=== PATIENT | male | born 1995 | race Caucasian/White ===

== ENCOUNTER 2017-10-15 22:46 | Emergency (ER) | payer OTHER ==
[~2017-10-15] VITALS: Ht 162.6 cm; Wt 68.5 kg
[~2017-10-15 22:46] MED LIST: AMOX875T20 PO; CETI5TAB2 PO; LINE150S PO; PERC5TAB12 PO
[2017-10-15 23:27] VITALS: BP 125/59; PULSE 106; RESP 18; TEMP 102.2; O2SAT 98
[2017-10-16 00:07] VITALS: TEMP 103.6
[2017-10-16] MEDS ORDERED: ONDANSETRON HCL 4 MG/2 ML VIAL IV ONE (00:15)
[2017-10-16] MEDS ORDERED: SODIUM CHLOR 0.9% 1000 ML INJ 1,000 ML IV SCH (00:15)
[2017-10-16] MEDS ORDERED: ACETAMINOPHEN 500 MG CPLT PO ONE (00:15)
[2017-10-16 01:14] VITALS: TEMP 103
[2017-10-16] MEDS ORDERED: OSELTAMIVIR PHOSPHATE 75 MG CAP PO ONE (01:15)
[2017-10-16 01:23] VITALS: BP 158/50; PULSE 103; RESP 20; TEMP 103; O2SAT 100
[2017-10-16] MEDS ORDERED: OSEL75 PO (01:30)
[2017-10-16] MEDS ORDERED: ZOFR8TAB PO (01:30)
[2017-10-16] MEDS ORDERED: TRAM50TA PO (01:32)
--- NOTE | 2017-10-16 01:35 | PD ---
HPI Chief Complaint: Cold / Flu Symptoms Time Seen by Provider: 00:10 Travel History International Travel<30 days: No Contact w/Intl Traveler<30days: No Traveled to known affect area: No History of Present Illness HPI The patient is a 22-year-old male that for one day complains of cough, congestion, myalgias and headache. He is allergic to ibuprofen. He has had a fever at home. He does have nausea and vomiting without diarrhea. His headache pain as dull and a 6/10 in intensity. He denies any significant abdominal pain. [facility] Past Medical History Medical History: Denies Significant Hx Diminished Hearing: No Medical other: Yes (HAS HAD MRSA 3 TIMES, LIP, JAW AND RIGHT LEG) Immunizations Current: No Tetanus Vaccination: < 5 Years Influenza Vaccination: Yes ?: Not Past Surgical History Surgical History: No Previous Surgery Social History Alcohol Use: Yes (SOCIALLY) Tobacco Use: No Substance Use: No Allergies-Medications (Allergen,Severity, Reaction): Coded Allergies: ibuprofen (Verified Allergy, Severe, Anaphylaxis, 10/16/17) vancomycin (Verified Allergy, Severe, Rash, 10/16/17) *MDRO Multi-Drug Resistant Organism (Verified Allergy, Unknown, 10/16/17) History MRSA 03/2013 Reported Meds & Prescriptions Reported Meds & Active Scripts Active Review of Systems Except as stated in HPI: all other systems reviewed are Neg Physical Exam Narrative GENERAL: Well-nourished, well-developed, mildly dehydrated patient in no respiratory distress. His vital signs show temperature of 103.6 and heart rate of 106 but the vital signs are otherwise normal. SKIN: Focused skin assessment warm/dry. No skin rash is noted. HEAD: Normocephalic. EYES: No scleral icterus. No injection or drainage. NECK: Supple, trachea midline. No JVD or lymphadenopathy. CARDIOVASCULAR: Regular rate and rhythm without murmurs, gallops, or rubs. RESPIRATORY: Breath sounds equal bilaterally. No accessory muscle use. Lungs clear to auscultation bilaterally. GASTROINTESTINAL: Abdomen soft, non-tender, nondistended. No guarding or rebound is present. MUSCULOSKELETAL: No cyanosis, or edema. BACK: Nontender without obvious deformity. No CVA tenderness. ENT: The tympanic membranes are clear and the throat is slightly red without exudate or abscess. Data Data Last Documented VS Vital Signs Date Time Temp Pulse Resp B/P (MAP) Pulse Ox O2 Delivery O2 Flow Rate FiO2 10/16/17 01:14 103.0 10/16/17 01:02 20 10/15/17 23:27 106 125/59 (81) 98 Orders Orders Sodium Chlor 0.9% 1000 Ml Inj (Ns 1000 M (10/16/17 00:15) Acetaminophen (Tylenol) (10/16/17 00:15) Ondansetron Inj (Zofran Inj) (10/16/17 00:15) Influenzae A/B Antigen (10/16/17 00:15) Group A Rapid Strep Screen (10/16/17 00:15) Strep Culture (Group A) (10/16/17 00:30) Oseltamivir (Tamiflu) (10/16/17 01:15) [facility] Medical Decision Making Medical Screen Exam Complete: Yes Emergency Medical Condition: Yes Medical Record Reviewed: Yes Interpretation(s) The influenza A/B antigen is positive for flu a and B antigen. The strep screen is negative for group A strep antigen. Differential Diagnosis Flu syndrome, nonspecific viral syndrome, pneumonia, bronchitis, bronchospasm, strep pharyngitis, viral pharyngitis Narrative Course The patient has influenza A. He is also clinically dehydrated and has a history of nausea and vomiting without diarrhea. He will need Tamiflu since this is only his first day, Zofran to prevent the nausea and tramadol for some of his pains. He is allergic to ibuprofen and this is a true allergy. He needs to follow-up with his primary care physician next week. Diagnosis Primary Impression: Influenza A Additional Impressions: Nausea & vomiting Mild dehydration Additional Instructions: Rest and drink plenty of liquids. Stay out of the sun as this is a stress. The tramadol as every 4-6 hours as needed for pain. The Zofran is one tablet every 8 hours as needed in the [place] fluids one capsule twice daily for 5 days. Follow-up next week with your primary care physician. Med/Other Pt SpecificInfo: Prescription(s) given Scripts Tramadol (Tramadol) 50 Mg Tab 50 MG PO Q4H Y for PAIN, #30 TAB 0 Refills Prov: Hugh Hansen MD 10/16/17 Oseltamivir (Tamiflu) 75 Mg Cap 75 MG PO BID for Mgmt Viral Infection for 5 Days, #10 CAP 0 Refills Prov: Hugh Hansen MD 10/16/17 Ondansetron (Zofran) 8 Mg Tab 8 MG PO TID for Nausea/Vomiting, #30 TAB 0 Refills Prov: Hugh Hansen MD 10/16/17 Disposition: 01 DISCHARGE HOME Condition: Stable Hugh Hansen MD Oct 16, 2017 01:35
[2017-10-16] MEDS ORDERED: traMADol HCL 50 MG TAB PO ONE (01:45)
[2017-10-16 01:56] VITALS: BP 133/45; TEMP 102.4
[2017-10-17] MEDS ORDERED: ZOFR4TAB3 SL (17:48)
== END 2017-10-16 02:03 | disposition home or self-care (01) ==
LOC: PHED 22:46
DX: J10.1 Influenza due to other identified influenza virus with other respiratory manifestations (principal); R11.2 Nausea with vomiting, unspecified; E86.0 Dehydration
CPT/HCPCS: 87081; 87804; 87880; 96361; 96374; 99284; J2405; J7030

== ENCOUNTER 2017-10-17 15:30 | Emergency (ER) | payer OTHER ==
[~2017-10-17] VITALS: Ht 162.6 cm; Wt 66.8 kg
[~2017-10-17 15:30] MED LIST changes: -AMOX875T20 PO; -CETI5TAB2 PO; -LINE150S PO; +OSEL75 PO; -PERC5TAB12 PO; +TRAM50TA PO; +ZOFR8TAB PO
[2017-10-17 16:06] VITALS: BP 128/58; PULSE 86; RESP 16; TEMP 100; O2SAT 99
--- NOTE | 2017-10-17 16:28 | PD ---
HPI Chief Complaint: GI Complaint Time Seen by Provider: 16:10 Travel History International Travel<30 days: No Contact w/Intl Traveler<30days: No Traveled to known affect area: No History of Present Illness HPI The patient is a 22-year-old male who presents to the emergency department for nausea, vomiting, and body aches. The patient was seen in emergency department on October 15 and diagnosed with influenza A. The patient was prescribed Tamiflu and has been trying to take the Tamiflu at home. However , he continues to have persistent nausea, vomiting, and is unable to tolerate the Tamiflu. He does complain of dehydration, denies any significant shortness of breath or abdominal pain. He denies any diarrhea. Symptoms are moderate, likely exacerbated by underlying influenza A, there are no current alleviating factors. PFSH Past Medical History Diminished Hearing: No Immunizations Current: No Social History Alcohol Use: Yes (SOCIALLY) Tobacco Use: No Substance Use: No Allergies-Medications (Allergen,Severity, Reaction): Coded Allergies: ibuprofen (Verified Allergy, Severe, Anaphylaxis, 10/17/17) vancomycin (Verified Allergy, Severe, Rash, 10/17/17) states does not have a allergy to this medication states gets a red face *MDRO Multi-Drug Resistant Organism (Verified Allergy, Unknown, 10/17/17) History MRSA 03/2013 Reported Meds & Prescriptions Reported Meds & Active Scripts Active Tramadol (Tramadol HCl) 50 Mg Tab 50 Mg PO Q4H PRN Tamiflu (Oseltamivir Phosphate) 75 Mg Cap 75 Mg PO BID 5 Days Zofran (Ondansetron HCl) 8 Mg Tab 8 Mg PO TID Review of Systems Except as stated in HPI: all other systems reviewed are Neg General / Constitutional: Positive: Fever HENT: Positive: Headaches Cardiovascular: No: Chest Pain or Discomfort Respiratory: Positive: Cough, No: Shortness of Breath Gastrointestinal: Positive: Nausea, Vomiting, No: Diarrhea, Abdominal Pain Musculoskeletal: Positive: Myalgias, Weakness, Cramping Physical Exam Narrative GENERAL: Awake, alert, pleasant 22-year-old male who appears his stated age and is in no acute respiratory distress. SKIN: Focused skin assessment warm/dry. Tattoos noted. HEAD: Atraumatic. Normocephalic. EYES: Pupils equal and round. No scleral icterus. No injection or drainage. ENT: No nasal bleeding or discharge. Dry mucous membranes. NECK: Trachea midline. No JVD. CARDIOVASCULAR: Regular rate and rhythm. No murmur appreciated. Heart rate in the 80s. RESPIRATORY: No accessory muscle use. Clear to auscultation. Breath sounds equal bilaterally. GASTROINTESTINAL: Abdomen soft, non-tender, nondistended. No rebound tenderness. MUSCULOSKELETAL: No obvious deformities. No clubbing. No cyanosis. No edema. NEUROLOGICAL: Awake and alert. No obvious cranial nerve deficits. Motor grossly within normal limits. Normal speech. PSYCHIATRIC: Appropriate mood and affect; insight and judgment normal. Data Data Last Documented VS Vital Signs Date Time Temp Pulse Resp B/P (MAP) Pulse Ox O2 Delivery O2 Flow Rate FiO2 10/17/17 16:06 100.0 86 16 128/58 (81) 99 Orders Orders Complete Blood Count With Diff (10/17/17 16:23) Comprehensive Metabolic Panel (10/17/17 16:23) Chest, Single Ap (10/17/17 ) Sodium Chlor 0.9% 1000 Ml Inj (Ns 1000 M (10/17/17 16:30) Sodium Chlor 0.9% 1000 Ml Inj (Ns 1000 M (10/17/17 16:30) Sodium Chlor 0.9% 1000 Ml Inj (Ns 1000 M (10/17/17 16:30) Ondansetron Inj (Zofran Inj) (10/17/17 16:30) Ketorolac Inj (Toradol Inj) (10/17/17 16:30) Labs Laboratory Tests Test 10/17/17 16:55 White Blood Count 5.1 TH/MM3 Red Blood Count 5.07 MIL/MM3 Hemoglobin 15.8 GM/DL Hematocrit 45.0 % Mean Corpuscular Volume 88.7 FL Mean Corpuscular Hemoglobin 31.2 PG Mean Corpuscular Hemoglobin Concent 35.2 % Red Cell Distribution Width 13.4 % Platelet Count 164 TH/MM3 Mean Platelet Volume 9.0 FL Neutrophils (%) (Auto) 70.2 % Lymphocytes (%) (Auto) 18.3 % Monocytes (%) (Auto) 10.9 % Eosinophils (%) (Auto) 0.3 % Basophils (%) (Auto) 0.3 % Neutrophils # (Auto) 3.6 TH/MM3 Lymphocytes # (Auto) 0.9 TH/MM3 Monocytes # (Auto) 0.6 TH/MM3 Eosinophils # (Auto) 0.0 TH/MM3 Basophils # (Auto) 0.0 TH/MM3 CBC Comment DIFF FINAL Differential Comment Blood Urea Nitrogen 7 MG/DL Creatinine 1.40 MG/DL Random Glucose 96 MG/DL Total Protein 7.0 GM/DL Albumin 3.7 GM/DL Calcium Level 8.5 MG/DL Alkaline Phosphatase 60 U/L Aspartate Amino Transf (AST/SGOT) 31 U/L Alanine Aminotransferase (ALT/SGPT) 31 U/L Total Bilirubin 0.4 MG/DL Sodium Level 135 MEQ/L Potassium Level 4.0 MEQ/L Chloride Level 101 MEQ/L Carbon Dioxide Level 28.3 MEQ/L Anion Gap 6 MEQ/L Estimat Glomerular Filtration Rate 63 ML/MIN [facility] Medical Decision Making Medical Screen Exam Complete: Yes Emergency Medical Condition: Yes Medical Record Reviewed: Yes Interpretation(s) Last Impressions Chest X-Ray 10/17/17 0000 Signed Impressions: Service Date/Time: Tuesday, October 17, 2017 16:30 - CONCLUSION: No acute cardiopulmonary disease. Funmi Carlson MD Laboratory Tests Test 10/17/17 16:55 White Blood Count 5.1 TH/MM3 Red Blood Count 5.07 MIL/MM3 Hemoglobin 15.8 GM/DL Hematocrit 45.0 % Mean Corpuscular Volume 88.7 FL Mean Corpuscular Hemoglobin 31.2 PG Mean Corpuscular Hemoglobin Concent 35.2 % Red Cell Distribution Width 13.4 % Platelet Count 164 TH/MM3 Mean Platelet Volume 9.0 FL Neutrophils (%) (Auto) 70.2 % Lymphocytes (%) (Auto) 18.3 % Monocytes (%) (Auto) 10.9 % Eosinophils (%) (Auto) 0.3 % Basophils (%) (Auto) 0.3 % Neutrophils # (Auto) 3.6 TH/MM3 Lymphocytes # (Auto) 0.9 TH/MM3 Monocytes # (Auto) 0.6 TH/MM3 Eosinophils # (Auto) 0.0 TH/MM3 Basophils # (Auto) 0.0 TH/MM3 CBC Comment DIFF FINAL Differential Comment Blood Urea Nitrogen 7 MG/DL Creatinine 1.40 MG/DL Random Glucose 96 MG/DL Total Protein 7.0 GM/DL Albumin 3.7 GM/DL Calcium Level 8.5 MG/DL Alkaline Phosphatase 60 U/L Aspartate Amino Transf (AST/SGOT) 31 U/L Alanine Aminotransferase (ALT/SGPT) 31 U/L Total Bilirubin 0.4 MG/DL Sodium Level 135 MEQ/L Potassium Level 4.0 MEQ/L Chloride Level 101 MEQ/L Carbon Dioxide Level 28.3 MEQ/L Anion Gap 6 MEQ/L Estimat Glomerular Filtration Rate 63 ML/MIN Differential Diagnosis Differential diagnosis includes influenza, dehydration, pneumonia, electrolyte abnormality, gastroenteritis, food poisoning, acute kidney injury. Narrative Course IV was established, labs are drawn and sent, and the patient was placed on cardiac telemetry monitoring and continuous pulse oximetry monitoring. The patient was administered 3 L of IV fluids and Zofran 4 mg intravenously. The patient is unsure if he has an allergy to ibuprofen, I discussed the administration of Toradol which is a nonsteroidal anti-inflammatory like ibuprofen. However, the patient states he is unsure if he is allergic to ibuprofen, therefore, I do discussion regarding Toradol administration. After discussion it was agreed the patient would receive Toradol, will be treated for any hives or shortness of breath. The patient had no reaction to Toradol, no hives, was reevaluated at 30 minutes, 60 minutes, and an hour and a half. The patient's labs are unremarkable except for creatinine 1.4, previous creatinine was 1. 10/15/2012. The patient received 3 L of fluid. He will be discharged home on Zofran. He is advised to follow-up with his primary physician. Diagnosis Primary Impression: Influenza A Additional Impressions: Dehydration Nausea & vomiting Qualified Codes: R11.2 - Nausea with vomiting, unspecified Patient Instructions: General Instructions Additional Instructions: Continue Tamiflu as previously directed. Zofran as directed. Plenty fluids to stay hydrated. Follow-up with your primary physician. Please provide the patient a copy of his labs at discharge. Med/Other Pt SpecificInfo: Prescription(s) given Scripts Ondansetron Odt (Zofran Odt) 4 Mg Tab 4 MG SL Q6HR Y for Nausea/Vomiting, #10 TAB 0 Refills Prov: Bhavin Emerson MD 10/17/17 Disposition: 01 DISCHARGE HOME Condition: Stable Bhavin Emerson MD Oct 17, 2017 16:28
[2017-10-17] MEDS ORDERED: ONDANSETRON HCL 4 MG/2 ML VIAL IV PUSH ONE (16:30)
[2017-10-17] MEDS ORDERED: SODIUM CHLOR 0.9% 1000 ML INJ 1,000 ML IV ONE ×3 (16:30)
[2017-10-17] MEDS ORDERED: KETOROLAC TROMETHAMINE 30 MG/ML (IVP) VIAL IV PUSH ONE (16:30)
--- NOTE | 2017-10-17 16:53 | RADRPT ---
EXAM DATE/TIME: 10/17/2017 16:30 [place] COMPARISON: No previous studies available for comparison. INDICATIONS : Fever, cough, short of breath, chest pain with cough MEDICAL HISTORY : None. SURGICAL HISTORY : None. ENCOUNTER: Initial ACUITY: 4 - 6 days PAIN SCORE: 8/10 LOCATION: Bilateral chest FINDINGS: The lungs are clear without infiltrate, nodule, or mass. There is no appreciable pleural effusion fo r technique. Heart and mediastinum are unremarkable. CONCLUSION: No acute cardiopulmonary disease. Funmi Carlson MD on October 17, 2017 at 16:50 Board Certified Radiologist. This report was verified electronically.
[2017-10-17 17:26] LABS: AUTOMATED NEUTROPHIL # 3.6 TH/MM3 (1.8-7.7); BASOPHIL % 0.3 % (0.0-2.0); EOSINOPHIL % 0.3 % (0.0-4.0); HEMOGLOBIN 15.8 GM/DL (13.0-17.0); LYMPH % 18.3 % (9.0-44.0); LYMPHOCYTE # 0.9 TH/MM3 (1.0-4.8); MEAN CELL VOLUME 88.7 FL (80.0-100.0); MEAN CORPUSCULAR HEMOGLOBIN 31.2 PG (27.0-34.0); MEAN CORPUSCULAR HGB CONC 35.2 % (32.0-36.0); MONO % 10.9 % (0.0-8.0); MONOCYTE # 0.6 TH/MM3 (0-0.9); NEUT % 70.2 % (16.0-70.0); PLATELET COUNT 164 TH/MM3 (150-450); RED BLOOD COUNT 5.07 MIL/MM3 (4.50-5.90); RED CELL DISTRIBUTION WIDTH 13.4 % (11.6-17.2); WHITE BLOOD COUNT 5.1 TH/MM3 (4.0-11.0)
[2017-10-17 17:35] LABS: CHLORIDE 101 MEQ/L (98-107); SODIUM (NA) 135 MEQ/L (136-145)
[2017-10-17 17:38] LABS: CALCIUM 8.5 MG/DL (8.5-10.1)
[2017-10-17 17:39] LABS: ALBUMIN 3.7 GM/DL (3.4-5.0); BICARBONATE 28.3 MEQ/L (21.0-32.0); BLOOD UREA NITROGEN 7 MG/DL (7-18); GLUCOSE,RANDOM 96 MG/DL (74-106)
[2017-10-17 17:42] LABS: ALT (GPT) 31 U/L (12-78); AST (GOT) 31 U/L (15-37); GLOMERULAR FILTRATION RATE 63 ML/MIN (>89)
[2017-10-17 17:43] LABS: TOTAL BILIRUBIN ADULT 0.4 MG/DL (0.2-1.0)
[2017-10-17 17:45] LABS: ALKALINE PHOSPHATASE 60 U/L (45-117)
[2017-10-17] MEDS ORDERED: ZOFR4TAB3 SL (17:48)
[2017-10-17 18:06] VITALS: BP 128/45; PULSE 63; RESP 18; O2SAT 96
== END 2017-10-17 18:45 | disposition home or self-care (01) ==
LOC: PHED 15:30
DX: J09.X2 Influenza due to identified novel influenza A virus with other respiratory manifestations (principal); E86.0 Dehydration; R11.2 Nausea with vomiting, unspecified; Z79.899 Other long term (current) drug therapy; Z88.6 Allergy status to analgesic agent
CPT/HCPCS: 71045; 80053; 85025; 96361; 96374; 96375; 99284; J1885; J2405; J7030